=== PATIENT | male | born 1950 | race Caucasian/White ===

== ENCOUNTER → 2018-06-11 | Outpatient (CLI) | payer OTHER ==
[~2018-06-11] MED LIST: CEPH500B PO; FLUT44HFA IH; HYDR-2132 PO; MOME220A2 IH; TAMS0.4C32 PO; TRAM50TA4 PO; TYL3 PO
== END | disposition home or self-care (01) ==
LOC: SHCH 08:48
PROVIDERS: ATTEND Internal Medicine Cardiovascular Disease
DX: I35.8 Other nonrheumatic aortic valve disorders (principal); I10 Essential (primary) hypertension
CPT/HCPCS: 93306

== ENCOUNTER → 2018-06-11 | Outpatient (CLI) | payer OTHER ==
[~2018-06-11] MED LIST changes: -CEPH500B PO; +REGADENOSON 0.4 MG/5 ML PF SYG IVP SCH; -TAMS0.4C32 PO; -TRAM50TA4 PO; -TYL3 PO
== END | disposition home or self-care (01) ==
LOC: SHCH 10:00
PROVIDERS: ATTEND Internal Medicine Cardiovascular Disease
DX: I10 Essential (primary) hypertension (principal); R00.1 Bradycardia, unspecified
CPT/HCPCS: 78452; 93017; 96374; A9500 ×2; J2785

== ENCOUNTER 2018-07-06 07:48 | Day surgery (SDC) | payer OTHER ==
[2018-07-05 15:57] VITALS: BP 159/73
[2018-07-05 16:05] LABS: BASOPHILS % (AUTO) 0.6 % (0.0-5.0); EOSINOPHILS % (AUTO) 3.8 % (0.0-8.0); HEMATOCRIT 34.5 % (42-54); LYMPHOCYTES % (AUTO) 20.9 % (21.0-51.0); MEAN CORPUSCULAR HEMOGLOBIN 33.2 pg (27.0-33.0); MEAN CORPUSCULAR HGB CONC 33.5 g/dL (32.0-36.0); MEAN CORPUSCULAR VOLUME 98.8 fL (79-99); MONOCYTES % (AUTO) 10.6 % (3.0-13.0); NEUTROPHILS % (AUTO) 64.1 % (40.0-77.0); NUCLEATED RED BLOOD CELLS 0.2 % (0.0-0.19); PLATELET COUNT (AUTO) 335 K/uL (130-400); RED BLOOD CELL COUNT(AUTO) 3.49 MIL/uL (4.50-6.20); WHITE BLOOD COUNT (AUTO) 6.1 K/uL (4.8-10.8)
[2018-07-05 16:14] LABS: CREATININE 0.9 mg/dL (0.5-1.5); POTASSIUM 4.3 mmol/L (3.5-5.1)
[2018-07-06] VITALS (14 sets, daily range): BP systolic 136–161; BP diastolic 61–90
[~2018-07-06] VITALS: Ht 175.3 cm; Wt 93.3 kg
[~2018-07-06 07:48] MED LIST changes: -REGADENOSON 0.4 MG/5 ML PF SYG IVP SCH; +TAMS0.4C32 PO; +TRAM50TA4 PO
[2018-07-06] MEDS ORDERED: LACTATED RINGERS 1000ML 1,000 ML IV ONE (08:26)
[2018-07-06] MEDS: CEFAZOLIN SODIUM 1 GM VIAL IVP PRN ×2 (08:50→10:17)
[2018-07-06] MEDS ORDERED: ROPIVACAINE 0.5% 5MG/ML 30ML IJ ONE (09:36)
[2018-07-06] MEDS ORDERED: SODIUM CHLORIDE 0.9% 10 ML VIAL ONE (09:39)
[2018-07-06] MEDS ORDERED: DEXAMETHASONE SOD PHOSPHATE 10MG/ML 1ML VIAL ONE ×3 (09:39→10:29)
[2018-07-06] MEDS ORDERED: LIDOCAINE PF 2% 5ML ABBOJECT ONE (09:44)
[2018-07-06] MEDS ORDERED: FENTANYL CITRATE PF 50 MCG/1 ML 2ML VIAL ONE (09:44)
[2018-07-06] MEDS ORDERED: ONDANSETRON HCL 4 MG/2 ML VIAL ONE (09:44)
[2018-07-06] MEDS ORDERED: GLYCOPYRROLATE 1 MG/5 ML SYRINGE ONE (09:44)
[2018-07-06] MEDS ORDERED: NEOSTIGMINE 5MG/5ML SYR IV ONE (09:45)
[2018-07-06] MEDS ORDERED: PROPOFOL 10 MG/ML 20ML VIAL IV ONE (09:45)
[2018-07-06] MEDS ORDERED: MIDAZOLAM HCL 1 MG/ML 2ML VIAL ONE (09:45)
[2018-07-06] MEDS ORDERED: ROCURONIUM 10MG/1ML SYR 10 MG/ML ML ONE (09:45)
[2018-07-06] MEDS ORDERED: LIDOCAINE HCL-MPF 1% 5ML AMP IJ ONE (09:46)
[2018-07-06] MEDS ORDERED: CEFAZOLIN SODIUM 1 GM VIAL IRRIG ONE (10:42)
[2018-07-06] MEDS ORDERED: CEPH500B PO ×2 (11:42)
[2018-07-06] MEDS ORDERED: TYL3 PO ×2 (11:42)
== END 2018-07-06 13:51 | disposition home or self-care (01) ==
LOC: SUH 07:48 → DAH 07:48 → SUH 13:51
PROVIDERS: ATTEND Orthopaedic Surgery
DX: M75.102 Unspecified rotator cuff tear or rupture of left shoulder, not specified as traumatic (principal); M75.42 Impingement syndrome of left shoulder; J45.909 Unspecified asthma, uncomplicated; E78.5 Hyperlipidemia, unspecified; M19.90 Unspecified osteoarthritis, unspecified site; M54.5 Low back pain; Z98.890 Other specified postprocedural states; Z79.899 Other long term (current) drug therapy; Z80.9 Family history of malignant neoplasm, unspecified; Z80.1 Family history of malignant neoplasm of trachea, bronchus and lung; G89.29 Other chronic pain
CPT/HCPCS: 23130; 36415; 80048; 85025; A4930 ×2; A6207; G0168; J0690 ×3; J1100 ×3; J2001; J2250; J2405; J2704; J2710; J2795; J3010; J3490 ×2; J7120

== ENCOUNTER 2019-12-13 07:29 | Day surgery (SDC) | payer OTHER ==
[2019-12-10 10:29] LABS: EOSINOPHILS % (AUTO) 4.5 % (0.0-8.0); HEMATOCRIT 42.6 % (42-54); LYMPHOCYTES % (AUTO) 20.9 % (21.0-51.0); MEAN CORPUSCULAR HEMOGLOBIN 33.4 pg (27.0-33.0); MEAN CORPUSCULAR HGB CONC 33.6 g/dL (32.0-36.0); MEAN CORPUSCULAR VOLUME 99.5 fL (79-99); MONOCYTES % (AUTO) 6.6 % (3.0-13.0); NEUTROPHILS % (AUTO) 66.8 % (40.0-77.0); PLATELET COUNT (AUTO) 225 K/uL (130-400); RED BLOOD CELL COUNT(AUTO) 4.28 MIL/uL (4.50-6.20); RED CELL DISTRIBUTION WIDTH 11.6 % (11.0-15.5); WHITE BLOOD COUNT (AUTO) 5.1 K/uL (4.8-10.8)
[2019-12-10 10:31] LABS: POTASSIUM 4.6 mmol/L (3.5-5.1)
[2019-12-11 10:31] VITALS: BP 145/74
[2019-12-13] VITALS (16 sets, daily range): BP systolic 107–128; BP diastolic 54–76
[~2019-12-13] VITALS: Ht 175.3 cm; Wt 96.9 kg
[~2019-12-13 07:29] MED LIST changes: +ACET-66 PO; +ALBU8.5H8 IH; +BUDE10.22 IH; +CYAN100099 PO; -FLUT44HFA IH; +FOLI1 PO; -HYDR-2132 PO; +LISI10TA7 PO; -MOME220A2 IH; -TAMS0.4C32 PO; +THIA100T91 PO; -TRAM50TA4 PO; +calcium citrate PO
[2019-12-13] MEDS: CEFAZOLIN SODIUM 1 GM VIAL IVP SCH ×2 (08:00→14:20)
[2019-12-13] MEDS ORDERED: LACTATED RINGERS 1000ML 1,000 ML IV ONE (08:06)
--- NOTE | 2019-12-13 08:49 | NUR ---
POTENTIAL FOR INFECTION: CLIPPED LEFT SHOULDER / LEFT UPPER ARM PER MATTHEW THOMSON, FOLLOWED BY WIPING WITH SAMANTA: 2% CHLORHEXIDINE GLUCONATE CLOTH PATIENTS PRE-OP SKIN PREP.
[2019-12-13] MEDS ORDERED: ALBUTEROL SULFATE 0.083% 2.5 MG/3 ML INH IH ONE (12:00)
[2019-12-13] MEDS ORDERED: EPINEPHRINE 1 MG/ML 30ML VIAL IJ ONE (12:16)
[2019-12-13] MEDS ORDERED: SUCCINYLCHOLINE CHLORIDE 20 MG/ML 10 ML VIAL ONE ×2 (12:39→12:42)
[2019-12-13] MEDS ORDERED: ROCURONIUM 10MG/1ML SYR 10 MG/ML ML ONE (12:40)
[2019-12-13] MEDS ORDERED: PROPOFOL 10 MG/ML 20ML VIAL IV ONE (12:40)
[2019-12-13] MEDS ORDERED: LIDOCAINE PF 2% 5ML ABBOJECT ONE (12:40)
[2019-12-13] MEDS ORDERED: MIDAZOLAM HCL 1 MG/ML 2ML VIAL ONE (12:40)
[2019-12-13] MEDS ORDERED: ROPIVACAINE 0.5% 5MG/ML 30ML IJ ONE ×2 (12:42→14:05)
[2019-12-13] MEDS ORDERED: PHENYLEPHRINE HCL 10 MG/ML 1ML VIAL IV ONE (14:05)
[2019-12-13] MEDS ORDERED: ONDANSETRON HCL 4 MG/2 ML VIAL ONE (14:21)
[2019-12-13] MEDS ORDERED: GLYCOPYRROLATE 1 MG/5 ML SYRINGE ONE (14:21)
[2019-12-13] MEDS ORDERED: NEOSTIGMINE 5MG/5ML SYR IV ONE (14:21)
[2019-12-13] MEDS ORDERED: EPHEDRINE SULFATE 50 MG/ML AMPULE ONE (14:42)
[2019-12-13] MEDS ORDERED: IBUP-2070 PO (15:52)
[2019-12-13] MEDS ORDERED: CEPH500B PO (15:52)
[2019-12-13] MEDS ORDERED: HYDR-4457 PO (15:52)
--- NOTE | 2019-12-13 17:25 | NUR ---
PT STABLE AAOX3, NO,DISTRESS. LT ARM IN SLING , INSTRUCTIONS GIVEN TO AND 3 PRESCRIPTIONS. PT AND VERBALIZED UNDERSTANDING. PT IV D/C , PT DRESSED WITH ASISSTANCE. PT TAKEN OUT IN WHEELCHAIR, DRIVEN HOME BY SPOUSE.
== END 2019-12-13 17:25 | disposition home or self-care (01) ==
LOC: DAH 07:29
PROVIDERS: ATTEND Orthopaedic Surgery
DX: M75.42 Impingement syndrome of left shoulder (principal); G89.29 Other chronic pain; M75.52 Bursitis of left shoulder; M77.9 Enthesopathy, unspecified; I10 Essential (primary) hypertension; E78.5 Hyperlipidemia, unspecified; J45.909 Unspecified asthma, uncomplicated; K21.9 Gastro-esophageal reflux disease without esophagitis; M19.90 Unspecified osteoarthritis, unspecified site
CPT/HCPCS: 29824; 29826; 36415; 64415; 76942; 80048; 85025; 93005; 94640; A4213; A4215; A4221; A4222; A4223; A4565; A4600; A4649 ×3; A4663; A4930; A5120; A6204; J0171; J0330 ×2; J0690; J2001; J2250; J2370; J2405; J2704; J2710; J2795 ×2; J3490 ×2; J7030; J7120 ×2

== ENCOUNTER → 2020-12-02 | Outpatient (CLI) | payer OTHER ==
[~2020-12-02] MED LIST changes: +CEPH500B PO; +HYDR-4457 PO; +IBUP-2070 PO; +LISI10TA24 PO; -LISI10TA7 PO
== END | disposition home or self-care (01) ==
LOC: RAH 12:33
PROVIDERS: ATTEND Urology Pediatric Urology
DX: C61 Malignant neoplasm of prostate (principal)
CPT/HCPCS: 78306; A9503